=== PATIENT | male | born 1950 | race African-American/Black ===

== ENCOUNTER 2021-10-08 15:03 | Emergency (ER) | payer MEDICARE, OTHER ==
[~2021-10-08] VITALS: Ht 185.4 cm; Wt 86.2 kg
== END 2021-10-08 16:52 | disposition home or self-care (01) ==
LOC: EDSEX 15:03 → ER 15:06
DX: S01.01XA Laceration without foreign body of scalp, initial encounter (principal); I82.409 Acute embolism and thrombosis of unspecified deep veins of unspecified lower extremity; I10 Essential (primary) hypertension; W01.10XA Fall on same level from slipping, tripping and stumbling with subsequent striking against unspecified object, initial encounter; Z79.02 Long term (current) use of antithrombotics/antiplatelets
CPT/HCPCS: 70450; 99283

== ENCOUNTER 2021-10-22 13:13 | Emergency (ER) | payer MEDICARE ==
[~2021-10-22] VITALS: Ht 185.4 cm; Wt 86.2 kg
== END 2021-10-22 15:30 | disposition home or self-care (01) ==
LOC: ER 13:22
DX: Z48.02 Encounter for removal of sutures (principal)
CPT/HCPCS: 99283